=== PATIENT | female | born 1970 | race African-American/Black ===

== ENCOUNTER 2022-04-12 06:29 | Inpatient (IN) | payer MEDICARE, MEDICAID ==
[~2022-04-12] VITALS: Ht 160 cm; Wt 72.6 kg
[2022-04-12 08:32] LABS: HEMATOCRIT. 25.8 % (36.0-48.0); HEMOGLOBIN. 8.4 g/dL (12.0-16.0); MEAN CORPUSCULAR HEMOGLOBIN 28.2 pg (28.0-32.0); MEAN CORPUSCULAR VOLUME 86.8 fL (81.0-99.0); MEAN PLATELET VOLUME 7.1 fl (7.4-10.4); PLATELET 167 x1000/uL (130-400); RED BLOOD CELL COUNT 2.97 mill/uL (4.2-5.4); RED CELL DISTRIBUTION WIDTH 22.7 % (11.6-14.6)
[2022-04-12 09:40] LABS: CHLORIDE 107 mEq/L (98-107)
[2022-04-12 10:40] LABS: PLATELET ESTIMATE NORMAL
[2022-04-12] MEDS ORDERED: SODIUM BICARBONATE 8.4% 1 MEQ/ML 50ML SYR IV ONE (10:45)
[2022-04-12] MEDS ORDERED: DEXTROSE 50% WATER 50ML SYRINGE IV ONE (10:45)
[2022-04-12] MEDS ORDERED: ALBUTEROL (0.083%) 2.5MG/3ML NEB HHN ONE (10:45)
[2022-04-12] MEDS ORDERED: CALCIUM CHLORIDE 1GM/10ML SYR IV ONE (10:45)
[2022-04-12] MEDS ORDERED: INSULIN REGULAR (HUMULIN R) 300UNITS/3ML VIAL IV ONE (10:45)
[2022-04-12] MEDS ORDERED: GUAIFENESIN 200MG/10ML SUGAR FREE UDC PO PRN (12:15)
[2022-04-12] MEDS ORDERED: CLONIDINE 0.1MG TABLET PO PRN (12:15)
[2022-04-12] MEDS ORDERED: IPRATROPIUM/ALBUTEROL 0.5-3(2.5)MG/3ML NEB NEB PRN (12:15)
[2022-04-12] MEDS ORDERED: HYDRALAZINE 20MG/ML VIAL IV PRN (12:15)
[2022-04-12] MEDS ORDERED: ACETAMINOPHEN 325MG TABLET PO PRN ×2 (12:15)
[2022-04-12] MEDS ORDERED: ONDANSETRON HCL 4MG/2ML INJ IV PRN (12:15)
[2022-04-12] MEDS ORDERED: MAGNESIUM/ALUMINUM HYDROXIDE/SIMETHICONE 30ML UDC PO PRN (12:15)
[2022-04-12] MEDS ORDERED: INSULIN REGULAR (HUMULIN R) 300UNITS/3ML VIAL IV NR (12:30)
[2022-04-12] MEDS: ENOXAPARIN 40MG/0.4ML SYR SUBCUT SCH (13:34)
[2022-04-12] MEDS: AMLODIPINE 10MG TABLET PO SCH (13:35)
[2022-04-12] MEDS: IPRATROPIUM/ALBUTEROL 0.5-3(2.5)MG/3ML NEB NEB SCH ×2 (14:55→20:07)
[2022-04-12] MEDS: DIPHENHYDRAMINE 50MG/ML VIAL IV PRN ×2 (15:42→22:06)
[2022-04-12] MEDS ORDERED: NALOXONE HCL 0.4MG/ML VIAL IV PRN (17:15)
[2022-04-12 19:07] LABS: HEPATITIS B SURFACE ANTIGEN NEGATIVE
[2022-04-12 19:09] LABS: INR 1.7; PROTHROMBIN TIME 17.7 sec (9.6-11.0)
[2022-04-12] MEDS: HYDROCODONE/ACETAMINOPHEN 5/325MG TABLET PO PRN (20:59)
[2022-04-12] MEDS: HYDRALAZINE HCL 50MG TABLET PO SCH (23:15)
[2022-04-13] VITALS (17 sets, daily range): BP systolic 118–158; BP diastolic 62–89
[2022-04-13] MEDS: HYDRALAZINE HCL 50MG TABLET PO SCH ×3 (05:11→21:18)
[2022-04-13] MEDS: DIPHENHYDRAMINE 50MG/ML VIAL IV PRN ×3 (05:11→21:18)
[2022-04-13 06:52] LABS: BASOPHILS % 0.9 % (0.0-2.0); EOSINOPHILS % 4.2 % (0.0-5.0); HEMATOCRIT. 27.3 % (36.0-48.0); HEMOGLOBIN. 8.7 g/dL (12.0-16.0); LYMPHOCYTES % 25.8 % (20.0-50.0); MEAN CORPUSCULAR HEMOGLOBIN 27.4 pg (28.0-32.0); MEAN CORPUSCULAR VOLUME 86.5 fL (81.0-99.0); MEAN PLATELET VOLUME 7.5 fl (7.4-10.4); MONOCYTES % 9.3 % (2.0-8.0); NEUTROPHILS % 59.8 % (40.0-76.0); PLATELET 181 x1000/uL (130-400); RED BLOOD CELL COUNT 3.16 mill/uL (4.2-5.4); RED CELL DISTRIBUTION WIDTH 21.6 % (11.6-14.6)
[2022-04-13 07:46] LABS: PHOSPHORUS 4.6 mg/dL (2.5-4.9)
[2022-04-13] MEDS: IPRATROPIUM/ALBUTEROL 0.5-3(2.5)MG/3ML NEB NEB SCH ×3 (08:28→20:44)
[2022-04-13] MEDS: AMLODIPINE 10MG TABLET PO SCH (08:57)
[2022-04-13] MEDS: ENOXAPARIN 40MG/0.4ML SYR SUBCUT SCH (08:57)
[2022-04-13] MEDS: CARVEDILOL 6.25 MG TABLET PO SCH ×2 (08:57→21:18)
[2022-04-13] MEDS ORDERED: WARF3TAB58 PO (15:43)
[2022-04-13] MEDS ORDERED: WARF4TAB71 PO (15:43)
[2022-04-13] MEDS ORDERED: PANT20TA17 PO (15:43)
[2022-04-13] MEDS ORDERED: CALC0.253 PO (15:57)
[2022-04-13] MEDS ORDERED: AMIO100T4 PO (15:57)
[2022-04-13] MEDS ORDERED: TRAM50TA3 PO (15:57)
[2022-04-13] MEDS ORDERED: ONDA4TAB50 MT (15:57)
[2022-04-13] MEDS ORDERED: CARV6.2548 MT (15:57)
[2022-04-13] MEDS ORDERED: TRAZ-251 PO (15:57)
[2022-04-13] MEDS ORDERED: BENZ200C52 PO (16:02)
[2022-04-13] MEDS ORDERED: NIFE-32 MT (16:02)
[2022-04-13] MEDS ORDERED: CYCL5TAB MT (16:02)
[2022-04-13] MEDS ORDERED: WARFARIN SODIUM 3MG TABLET PO NR (18:00)
[2022-04-13] MEDS ORDERED: WARFARIN SODIUM 1MG TABLET PO SCH (18:00)
[2022-04-13 20:07] LABS: INR 1.4; PROTHROMBIN TIME 14.5 sec (9.6-11.0)
[2022-04-13] MEDS ORDERED: EPOETIN ALFA 10000UNITS/ML VIAL SUBCUT SCH (21:00)
[2022-04-13] MEDS ORDERED: EPOETIN ALFA-EPBX 4,000 UNIT/ML VIAL SUBCUT SCH (21:00)
[2022-04-14] VITALS (17 sets, daily range): BP systolic 103–167; BP diastolic 56–89
[2022-04-14] MEDS: IPRATROPIUM/ALBUTEROL 0.5-3(2.5)MG/3ML NEB NEB SCH ×4 (02:18→20:47)
[2022-04-14] MEDS: DIPHENHYDRAMINE 50MG/ML VIAL IV PRN ×3 (04:03→21:08)
[2022-04-14 06:17] LABS: EOSINOPHILS % 5.6 % (0.0-5.0); HEMATOCRIT. 24.2 % (36.0-48.0); HEMOGLOBIN. 7.7 g/dL (12.0-16.0); LYMPHOCYTES % 33.2 % (20.0-50.0); MEAN CORPUSCULAR HEMOGLOBIN 27.5 pg (28.0-32.0); MEAN CORPUSCULAR VOLUME 86.1 fL (81.0-99.0); MEAN PLATELET VOLUME 7.5 fl (7.4-10.4); MONOCYTES % 9.9 % (2.0-8.0); NEUTROPHILS % 50.3 % (40.0-76.0); PLATELET 164 x1000/uL (130-400); RED BLOOD CELL COUNT 2.81 mill/uL (4.2-5.4); RED CELL DISTRIBUTION WIDTH 21.8 % (11.6-14.6)
[2022-04-14 06:29] LABS: INR 1.3; PROTHROMBIN TIME 13.8 sec (9.6-11.0)
[2022-04-14 06:45] LABS: PHOSPHORUS 4.8 mg/dL (2.5-4.9)
[2022-04-14] MEDS: HYDRALAZINE HCL 50MG TABLET PO SCH ×3 (07:08→21:08)
[2022-04-14] MEDS: AMLODIPINE 10MG TABLET PO SCH (08:03)
[2022-04-14] MEDS: CARVEDILOL 6.25 MG TABLET PO SCH ×2 (08:03→21:08)
[2022-04-14] MEDS: ENOXAPARIN 40MG/0.4ML SYR SUBCUT SCH (10:00)
[2022-04-14] MEDS: HYDROCODONE/ACETAMINOPHEN 5/325MG TABLET PO PRN (13:25)
[2022-04-14] MEDS ORDERED: WARFARIN SODIUM 4MG TABLET PO SCH (18:00)
[2022-04-15] VITALS (9 sets, daily range): BP systolic 118–144; BP diastolic 62–75
[2022-04-15] MEDS: IPRATROPIUM/ALBUTEROL 0.5-3(2.5)MG/3ML NEB NEB SCH ×2 (01:32→09:35)
[2022-04-15] MEDS: DIPHENHYDRAMINE 50MG/ML VIAL IV PRN ×2 (03:53→09:41)
[2022-04-15] MEDS: HYDRALAZINE HCL 50MG TABLET PO SCH (07:00)
[2022-04-15 07:02] LABS: INR 1.2; PROTHROMBIN TIME 12.4 sec (9.6-11.0)
[2022-04-15 07:17] LABS: BASOPHILS % 0.8 % (0.0-2.0); EOSINOPHILS % 5.8 % (0.0-5.0); HEMOGLOBIN. 8.7 g/dL (12.0-16.0); LYMPHOCYTES % 34.7 % (20.0-50.0); MEAN CORPUSCULAR HEMOGLOBIN 27.7 pg (28.0-32.0); MEAN CORPUSCULAR VOLUME 86.1 fL (81.0-99.0); MEAN PLATELET VOLUME 7.2 fl (7.4-10.4); MONOCYTES % 11.4 % (2.0-8.0); NEUTROPHILS % 47.3 % (40.0-76.0); PLATELET 159 x1000/uL (130-400); RED BLOOD CELL COUNT 3.13 mill/uL (4.2-5.4); RED CELL DISTRIBUTION WIDTH 21.9 % (11.6-14.6)
[2022-04-15 07:55] LABS: PHOSPHORUS 4.2 mg/dL (2.5-4.9)
[2022-04-15] MEDS: CARVEDILOL 6.25 MG TABLET PO SCH (08:43)
[2022-04-15] MEDS: AMLODIPINE 10MG TABLET PO SCH (08:44)
[2022-04-15] MEDS ORDERED: WARFARIN SODIUM 4MG TABLET PO NR (08:45)
[2022-04-15] MEDS: ENOXAPARIN 40MG/0.4ML SYR SUBCUT SCH (09:00)
[2022-04-16] MEDS ORDERED: WARFARIN SODIUM 4MG TABLET PO SCH (18:00)
== END 2022-04-15 13:45 | disposition home or self-care (01) | DRG 291 ==
LOC: ER 06:29 → EDBD 06:29 → MICUSO 10:32 → SUPCPDRO 11:56 → 5EST 23:45
PROVIDERS: ADMIT Internal Medicine; ATTEND Internal Medicine
PROC: 5A1D70Z Performance of Urinary Filtration, Intermittent, Less than 6 Hours Per Day (ICD-10-PCS; principal; 2022-04-12)
PROC: 5A1D70Z Performance of Urinary Filtration, Intermittent, Less than 6 Hours Per Day (ICD-10-PCS; 2022-04-14)
DX: I13.2 Hypertensive heart and chronic kidney disease with heart failure and with stage 5 chronic kidney disease, or end stage renal disease (principal); I50.33 Acute on chronic diastolic (congestive) heart failure; J96.01 Acute respiratory failure with hypoxia; N18.6 End stage renal disease; J44.1 Chronic obstructive pulmonary disease with (acute) exacerbation; E78.5 Hyperlipidemia, unspecified; E87.5 Hyperkalemia; I16.0 Hypertensive urgency; Z20.822 Contact with and (suspected) exposure to COVID-19; D63.1 Anemia in chronic kidney disease; R77.8 Other specified abnormalities of plasma proteins; Z91.15 Patient's noncompliance with renal dialysis; Z88.8 Allergy status to other drugs, medicaments and biological substances; Z99.2 Dependence on renal dialysis; Z86.73 Personal history of transient ischemic attack (TIA), and cerebral infarction without residual deficits; Z79.01 Long term (current) use of anticoagulants; Z79.899 Other long term (current) drug therapy; Z82.49 Family history of ischemic heart disease and other diseases of the circulatory system; Z95.3 Presence of xenogenic heart valve
CPT/HCPCS: 36415; 71045; 80048; 80053; 82962; 83735; 83880; 84100; 84484; 85025; 86705; 86709; 86803; 87340; 87426; 93005; 93306; 93970; 94640; 97162; 97166; 99291; J0360; J0885; J1200; J1650; J2405; J3490